=== PATIENT | male | born 1945 | race Caucasian/White ===

== ENCOUNTER 2017-11-13 08:06 | Inpatient (IN) | payer MEDICARE, OTHER ==
[2017-11-13] MEDS: METHYLPREDNISOLONE 125 MG INJ IV (08:39)
[2017-11-13 08:41] LABS: ADD MAN DIFF? NO
[2017-11-13 08:45] LABS: WHITE BLOOD COUNT 13.8 10^3/ul (4.8-10.8)
[2017-11-13 08:45] LABS: BASOPHILS % 0.3 % (0.0-2.0); EOSINOPHILS # 0.1 10^3/ul (0.0-0.5); EOSINOPHILS % 0.7 % (0.0-7.0); HEMATOCRIT 39.1 % (42.0-52.0); HEMOGLOBIN 12.3 g/dl (14.0-18.0); LYMPHOCYTES # 0.6 10^3/ul (0.8-2.9); LYMPHOCYTES % 4.6 % (15.0-51.0); MEAN CORPUSCULAR HEMOGLOBIN 30.8 pg (29.0-33.0); MEAN CORPUSCULAR HGB CONC 31.5 g/dl (32.0-37.0); MEAN CORPUSCULAR VOLUME 97.8 fl (82.0-101.0); MONOCYTE # 0.9 10^3/ul (0.3-0.9); MONOCYTES % 6.6 % (0.0-11.0); NEUTROPHIL # 12.1 10^3/ul (1.6-7.5); NEUTROPHILS % 87.4 % (39.0-77.0); PLATELET COUNT 244 10^3/UL (140-415); RED CELL DISTRIBUTION WIDTH 12.9 % (11.5-14.5)
[2017-11-13] MEDS: ALBUTEROL 0.5% (NEB) 2.5 MG/0.5 ML AMP INH (09:03)
[2017-11-13 09:07] LABS: ALANINE AMINOTRANSFERASE 31 IU/L (13-69); ALBUMIN 4.1 g/dl (3.3-4.9); ALBUMIN/GLOBULIN RATIO 1.64; ALKALINE PHOSPHATASE 77 IU/L (42-121); ANION GAP 16 (8-16); ASPARTATE AMINO TRANSFERASE 19 IU/L (15-46); BILIRUBIN,INDIRECT 0.2 mg/dl (0-1.1); BILIRUBIN,TOTAL 0.2 mg/dl (0.2-1.3); BLOOD UREA NITROGEN 64 mg/dl (7-20); CALCIUM 8.1 mg/dl (8.4-10.2); CARBON DIOXIDE 30 mmol/L (21-31); CHLORIDE 100 mmol/L (97-110); CREATININE 8.49 mg/dl (0.61-1.24); GLUCOSE 88 mg/dl (70-220); SODIUM 141 mmol/L (135-144); TOTAL PROTEIN 6.6 g/dl (6.1-8.1)
[2017-11-13 09:18] LABS: B-TYPE NATRIURETIC PEPTIDE 23300 PG/ML (0-125)
[2017-11-13 09:19] LABS: TROPONIN-I < 0.012 ng/ml (0.000-0.120)
[2017-11-13] MEDS ORDERED: ACETAMINOPHEN 325 MG TAB PO (10:30)
[2017-11-13] MEDS ORDERED: ONDANSETRON 4 MG INJ IV ×2 (10:30→13:30)
[2017-11-13] MEDS ORDERED: NACL 0.9% 3 ML SYG IV (13:30)
[2017-11-13] MEDS ORDERED: ZOLPIDEM 5 MG TAB PO (13:30)
[2017-11-13 13:55] LABS: CREATINE KINASE 301 IU/L (23-200)
[2017-11-13] MEDS ORDERED: GLUCOSE GEL 15 GRAM TUBE BUCCAL (14:00)
[2017-11-13] MEDS ORDERED: DEXTROSE 50% 50 ML SYRINGE IV ×2 (14:00)
[2017-11-13] MEDS ORDERED: GLUCAGON 1 MG INJ IM (14:00)
[2017-11-13] MEDS ORDERED: GLUCOSE GEL 15 GRAM TUBE PO ×2 (14:00)
[2017-11-13 14:07] LABS: CK INDEX 0.1
[2017-11-13 14:10] LABS: CK-MB < 0.22 ng/ml (0.0-2.4); TROPONIN-I < 0.012 ng/ml (0.000-0.120)
[2017-11-13] MEDS: FLUTICASONE/VILANTEROL 100-25 INH (16:01)
[2017-11-13] MEDS: ALBUTEROL/IPRATROPIUM (NEB) 3 ML AMP HHN ×2 (16:40→20:41)
[2017-11-13] MEDS: INSULIN ASPART [NOVOLOG] 3 ML PEN SC ×2 (17:07→20:24)
[2017-11-13] MEDS: SEVELAMER CARBONATE 0.8 GM PKT PO (17:07)
[2017-11-13] MEDS ORDERED: INSULIN ASPART [NOVOLOG] 3 ML PEN SC (17:35)
[2017-11-13 19:42] LABS: CREATINE KINASE 293 IU/L (23-200)
[2017-11-13 19:55] LABS: CK INDEX 0.1
[2017-11-13 19:58] LABS: CK-MB 0.25 ng/ml (0.0-2.4); TROPONIN-I < 0.012 ng/ml (0.000-0.120)
[2017-11-13] MEDS: HEPARIN 5,000 UNIT/0.5 ML VIAL SC (20:21)
[2017-11-13] MEDS: FAMOTIDINE 20 MG TAB PO (20:21)
[2017-11-13 23:19] LABS: HEPATITIS B SURFACE ANTIGEN NEGATIVE (NEGATIVE)
[2017-11-14] MEDS: ALBUTEROL/IPRATROPIUM (NEB) 3 ML AMP HHN ×6 (00:54→21:20)
[2017-11-14] MEDS: ACCU-CHEK XX (02:00)
[2017-11-14 06:12] LABS: ADD MAN DIFF? NO
[2017-11-14 06:18] LABS: WHITE BLOOD COUNT 13.4 10^3/ul (4.8-10.8)
[2017-11-14 06:18] LABS: ABNORMAL IP MESSAGE 1; HEMATOCRIT 31.4 % (42.0-52.0); HEMOGLOBIN 10.4 g/dl (14.0-18.0); LYMPHOCYTES # 0.3 10^3/ul (0.8-2.9); LYMPHOCYTES % 2.4 % (15.0-51.0); MEAN CORPUSCULAR HEMOGLOBIN 31.4 pg (29.0-33.0); MEAN CORPUSCULAR HGB CONC 33.1 g/dl (32.0-37.0); MEAN CORPUSCULAR VOLUME 94.9 fl (82.0-101.0); MEAN PLATELET VOLUME 11.4 fl (7.4-10.4); MONOCYTE # 0.5 10^3/ul (0.3-0.9); MONOCYTES % 3.6 % (0.0-11.0); NEUTROPHIL # 12.6 10^3/ul (1.6-7.5); NEUTROPHILS % 93.6 % (39.0-77.0); PLATELET COUNT 212 10^3/UL (140-415); POSITIVE DIFF @See below; RED BLOOD COUNT 3.31 10^6/ul (4.70-6.10); RED CELL DISTRIBUTION WIDTH 12.8 % (11.5-14.5)
[2017-11-14 06:30] LABS: HEMOGLOBIN A1C 5.3 % (0-5.9)
[2017-11-14 06:41] LABS: ALANINE AMINOTRANSFERASE 29 IU/L (13-69); ALBUMIN 3.7 g/dl (3.3-4.9); ALBUMIN/GLOBULIN RATIO 1.54; ALKALINE PHOSPHATASE 67 IU/L (42-121); ANION GAP 14 (8-16); ASPARTATE AMINO TRANSFERASE 16 IU/L (15-46); BILIRUBIN,INDIRECT 0.1 mg/dl (0-1.1); BILIRUBIN,TOTAL 0.1 mg/dl (0.2-1.3); BLOOD UREA NITROGEN 41 mg/dl (7-20); CALCIUM 8.1 mg/dl (8.4-10.2); CARBON DIOXIDE 30 mmol/L (21-31); CHLORIDE 101 mmol/L (97-110); CHOLESTEROL 142 mg/dl (100-200); CREATININE 5.12 mg/dl (0.61-1.24); GLUCOSE 144 mg/dl (70-220); HDL CHOLESTEROL 71 mg/dl (31-75); LDL CHOLESTEROL,CALCULATED 55 mg/dl; MAGNESIUM 2.3 mg/dl (1.7-2.5); POTASSIUM 4.2 mmol/L (3.5-5.1); SODIUM 141 mmol/L (135-144); TOTAL PROTEIN 6.1 g/dl (6.1-8.1); TRIGLYCERIDES 81 mg/dl (0-149)
[2017-11-14 07:07] LABS: THYROID STIMULATING HORMONE 0.213 MIU/L (0.465-4.680)
[2017-11-14] MEDS: INSULIN ASPART [NOVOLOG] 3 ML PEN SC ×4 (07:35→21:00)
[2017-11-14 07:41] LABS: AADO2 Arterial 48.6 mmHg (7.0-24.0); Allen Test ACCEPTAB; Arterial Base Excess -0.5 mmol/L (-3.0-3); Arterial Blood Gas Oxygen Sat 89.1 mmHG (95.0-100.0); Arterial COHb 0.6 % (0.0-3.0); Arterial Fraction of Oxyhgb 88.5 % (93.0-99.0); Arterial HCO3 23.6 mmol/L (22.0-26.0); Arterial MetHb 0.1 % (0.0-1.5); Arterial Total Hemglobin 12.4 g/dl (12.0-18.0); Arterial pCO2 36.8 mmhg (35-45); MODE ROOM AIR; Site Right Radial
[2017-11-14] MEDS: SEVELAMER CARBONATE 0.8 GM PKT PO ×2 (07:46→17:05)
[2017-11-14] MEDS: FLUTICASONE/VILANTEROL 100-25 INH (08:27)
[2017-11-14] MEDS: ASPIRIN 81 MG TAB PO (08:27)
[2017-11-14] MEDS: HYDROCORTISONE 5 MG TAB PO (08:28)
[2017-11-14] MEDS: AMIODARONE 200 MG TAB PO (08:28)
[2017-11-14] MEDS: LINAGLIPTIN 5 MG TABLET PO (08:28)
[2017-11-14] MEDS: METOPROLOL (XL) 50 MG TAB PO (08:28)
[2017-11-14] MEDS: HEPARIN 5,000 UNIT/0.5 ML VIAL SC ×2 (08:29→20:53)
[2017-11-14] MEDS: SERTRALINE 50 MG TAB PO (08:29)
[2017-11-14] MEDS: LISINOPRIL 5 MG TAB PO (12:04)
[2017-11-14] MEDS: NIFEdipine (XL) 30 MG TAB PO (12:37)
[2017-11-14] MEDS: FAMOTIDINE 20 MG TAB PO (20:30)
[2017-11-15] MEDS: ALBUTEROL/IPRATROPIUM (NEB) 3 ML AMP HHN ×6 (00:34→20:48)
[2017-11-15] MEDS: ACCU-CHEK XX (02:30)
[2017-11-15 05:18] LABS: ADD MAN DIFF? NO
[2017-11-15 05:21] LABS: WHITE BLOOD COUNT 11.2 10^3/ul (4.8-10.8)
[2017-11-15 05:21] LABS: BASOPHILS % 0.4 % (0.0-2.0); EOSINOPHILS # 0.1 10^3/ul (0.0-0.5); EOSINOPHILS % 0.9 % (0.0-7.0); HEMATOCRIT 34.6 % (42.0-52.0); HEMOGLOBIN 11.2 g/dl (14.0-18.0); LYMPHOCYTES # 1.3 10^3/ul (0.8-2.9); LYMPHOCYTES % 11.8 % (15.0-51.0); MEAN CORPUSCULAR HEMOGLOBIN 30.5 pg (29.0-33.0); MEAN CORPUSCULAR HGB CONC 32.4 g/dl (32.0-37.0); MEAN CORPUSCULAR VOLUME 94.3 fl (82.0-101.0); MEAN PLATELET VOLUME 11.4 fl (7.4-10.4); MONOCYTE # 0.8 10^3/ul (0.3-0.9); MONOCYTES % 7.5 % (0.0-11.0); NEUTROPHIL # 8.9 10^3/ul (1.6-7.5); PLATELET COUNT 261 10^3/UL (140-415); RED BLOOD COUNT 3.67 10^6/ul (4.70-6.10)
[2017-11-15 05:33] LABS: ANION GAP 15 (8-16); BLOOD UREA NITROGEN 36 mg/dl (7-20); CALCIUM 8.4 mg/dl (8.4-10.2); CARBON DIOXIDE 29 mmol/L (21-31); CHLORIDE 102 mmol/L (97-110); CREATININE 4.54 mg/dl (0.61-1.24); GLUCOSE 88 mg/dl (70-220); MAGNESIUM 2.3 mg/dl (1.7-2.5); PHOSPHORUS 4.1 mg/dl (2.5-4.9); POTASSIUM 4.3 mmol/L (3.5-5.1); SODIUM 142 mmol/L (135-144)
[2017-11-15] MEDS: INSULIN ASPART [NOVOLOG] 3 ML PEN SC ×4 (07:35→20:24)
[2017-11-15] MEDS: SEVELAMER CARBONATE 0.8 GM PKT PO ×2 (07:40→17:02)
[2017-11-15] MEDS: HYDROCORTISONE 5 MG TAB PO (08:41)
[2017-11-15] MEDS: SERTRALINE 50 MG TAB PO (08:41)
[2017-11-15] MEDS: LISINOPRIL 5 MG TAB PO (08:42)
[2017-11-15] MEDS: ASPIRIN 81 MG TAB PO (08:42)
[2017-11-15] MEDS: METOPROLOL (XL) 50 MG TAB PO (08:42)
[2017-11-15] MEDS: AMIODARONE 200 MG TAB PO (08:42)
[2017-11-15] MEDS: HEPARIN 5,000 UNIT/0.5 ML VIAL SC ×2 (08:47→20:24)
[2017-11-15] MEDS: LINAGLIPTIN 5 MG TABLET PO (09:58)
[2017-11-15] MEDS: FLUTICASONE/VILANTEROL 100-25 INH (09:59)
[2017-11-15] MEDS: FAMOTIDINE 20 MG TAB PO (20:22)
[2017-11-16] MEDS: hydrALAzine 20 MG INJ IV (01:03)
[2017-11-16] MEDS: ALBUTEROL/IPRATROPIUM (NEB) 3 ML AMP HHN ×6 (01:10→21:40)
[2017-11-16] MEDS: ACCU-CHEK XX (02:00)
[2017-11-16] MEDS: INSULIN ASPART [NOVOLOG] 3 ML PEN SC ×4 (08:00→20:38)
[2017-11-16] MEDS: SEVELAMER CARBONATE 0.8 GM PKT PO ×2 (08:00→17:49)
[2017-11-16] MEDS: FLUTICASONE/VILANTEROL 100-25 INH (08:37)
[2017-11-16] MEDS: ACETAMINOPHEN 325 MG TAB PO (08:37)
[2017-11-16] MEDS: SERTRALINE 50 MG TAB PO (09:00)
[2017-11-16] MEDS: HEPARIN 5,000 UNIT/0.5 ML VIAL SC ×2 (12:11→21:00)
[2017-11-16] MEDS: LINAGLIPTIN 5 MG TABLET PO (14:17)
[2017-11-16] MEDS: ASPIRIN 81 MG TAB PO (14:17)
[2017-11-16] MEDS: METOPROLOL (XL) 50 MG TAB PO (14:18)
[2017-11-16] MEDS: HYDROCORTISONE 5 MG TAB PO (14:18)
[2017-11-16] MEDS: AMIODARONE 200 MG TAB PO (14:19)
[2017-11-16] MEDS: LISINOPRIL 20 MG TAB PO ×2 (14:20→20:38)
[2017-11-16] MEDS: FAMOTIDINE 20 MG TAB PO (20:38)
[2017-11-16] MEDS: LORAZEPAM 1 MG TAB PO (20:38)
[2017-11-17] MEDS: ALBUTEROL/IPRATROPIUM (NEB) 3 ML AMP HHN ×4 (01:58→12:54)
[2017-11-17] MEDS: ACCU-CHEK XX (02:00)
[2017-11-17] MEDS ORDERED: FENTAnyl 50 MCG/ML VIAL (07:43)
[2017-11-17] MEDS ORDERED: MIDAZOLAM 1 MG/ML 2 ML INJ (07:43)
[2017-11-17] MEDS ORDERED: IODIXANOL LOCM 100 ML BTL ×2 (07:47→08:44)
[2017-11-17] MEDS ORDERED: LIDOCAINE 1% (MDV) 20 ML INJ (07:47)
[2017-11-17] MEDS ORDERED: HEPARIN 1000 UNITS/NS (A-LINE) 1,000 ML (07:47)
[2017-11-17] MEDS ORDERED: HEPARIN 1000 UNITS/ML 10 ML INJ (07:57)
[2017-11-17] MEDS: INSULIN ASPART [NOVOLOG] 3 ML PEN SC ×2 (09:30→12:00)
[2017-11-17] MEDS: HYDROCORTISONE 5 MG TAB PO (09:37)
[2017-11-17] MEDS: AMIODARONE 200 MG TAB PO (09:38)
[2017-11-17] MEDS: SEVELAMER CARBONATE 0.8 GM PKT PO (09:39)
[2017-11-17] MEDS: FLUTICASONE/VILANTEROL 100-25 INH (09:40)
[2017-11-17] MEDS: ASPIRIN 81 MG TAB PO (09:40)
[2017-11-17] MEDS: LINAGLIPTIN 5 MG TABLET PO (09:41)
[2017-11-17] MEDS: SERTRALINE 50 MG TAB PO (09:41)
[2017-11-17] MEDS: METOPROLOL (XL) 50 MG TAB PO (09:41)
[2017-11-17] MEDS: LISINOPRIL 20 MG TAB PO (09:41)
[2017-11-17] MEDS: HEPARIN 5,000 UNIT/0.5 ML VIAL SC (09:43)
[2017-11-17 11:11] LABS: ADD MAN DIFF? NO
[2017-11-17 11:13] LABS: BASOPHIL # 0.1 10^3/ul (0.0-0.1); BASOPHILS % 0.7 % (0.0-2.0); EOSINOPHILS # 0.2 10^3/ul (0.0-0.5); HEMATOCRIT 40.2 % (42.0-52.0); HEMOGLOBIN 12.9 g/dl (14.0-18.0); MEAN CORPUSCULAR HEMOGLOBIN 30.5 pg (29.0-33.0); MEAN CORPUSCULAR HGB CONC 32.1 g/dl (32.0-37.0); MEAN PLATELET VOLUME 10.7 fl (7.4-10.4); MONOCYTE # 0.6 10^3/ul (0.3-0.9); MONOCYTES % 7.1 % (0.0-11.0); NEUTROPHILS % 78.5 % (39.0-77.0); PLATELET COUNT 293 10^3/UL (140-415); RED BLOOD COUNT 4.23 10^6/ul (4.70-6.10); RED CELL DISTRIBUTION WIDTH 13.2 % (11.5-14.5)
[2017-11-17 11:13] LABS: WHITE BLOOD COUNT 8.9 10^3/ul (4.8-10.8)
[2017-11-17 11:33] LABS: ANION GAP 23 (8-16); BLOOD UREA NITROGEN 57 mg/dl (7-20); CALCIUM 8.4 mg/dl (8.4-10.2); CARBON DIOXIDE 23 mmol/L (21-31); CHLORIDE 98 mmol/L (97-110); CREATININE 6.46 mg/dl (0.61-1.24); GLUCOSE 113 mg/dl (70-220); MAGNESIUM 2.3 mg/dl (1.7-2.5); PHOSPHORUS 5.3 mg/dl (2.5-4.9); POTASSIUM 4.5 mmol/L (3.5-5.1); SODIUM 139 mmol/L (135-144)
== END 2017-11-17 16:30 | disposition home health service (06) | DRG 673 ==
LOC: MS3 11-15 11:40 → E/R 08:06 → MS3 11-15 12:01 → MS4 11-15 19:06 → MS3 10:12
PROC: 057F3ZZ Dilation of Left Cephalic Vein, Percutaneous Approach (ICD-10-PCS; principal; 2017-11-17 07:14)
PROC: 05LY3ZZ Occlusion of Upper Vein, Percutaneous Approach (ICD-10-PCS; 2017-11-17 07:14)
PROC: B50W1ZZ Plain Radiography of Dialysis Shunt/Fistula using Low Osmolar Contrast (ICD-10-PCS; 2017-11-17 07:14)
DX: I13.11 Hypertensive heart and chronic kidney disease without heart failure, with stage 5 chronic kidney disease, or end stage renal disease (principal); I50.43 Acute on chronic combined systolic (congestive) and diastolic (congestive) heart failure; N18.6 End stage renal disease; J96.00 Acute respiratory failure, unspecified whether with hypoxia or hypercapnia; T82.858A Stenosis of other vascular prosthetic devices, implants and grafts, initial encounter; J44.1 Chronic obstructive pulmonary disease with (acute) exacerbation; E87.79 Other fluid overload; D63.8 Anemia in other chronic diseases classified elsewhere; E11.9 Type 2 diabetes mellitus without complications; Z87.891 Personal history of nicotine dependence; I35.0 Nonrheumatic aortic (valve) stenosis; F32.9 Major depressive disorder, single episode, unspecified; Z99.81 Dependence on supplemental oxygen
CPT/HCPCS: 36415; 36600; 36902; 36909; 71045; 74176; 76937; 80048; 80053; 80061; 82550; 82553; 82803; 82962; 83036; 83735; 83880; 84100; 84443; 84484; 85025; 87081; 87340; 90935; 93005; 93306; 93931; 93970; 94640; 94644; 94664; 96374; 99285-25

== ENCOUNTER 2017-11-19 20:47 | Inpatient (IN) | payer MEDICARE, OTHER ==
[2017-11-19] MEDS: ALBUTEROL 0.083% (NEB) 2.5 MG/3 ML AMP HHN (21:33)
[2017-11-19] MEDS: IPRATROPIUM (NEB) 0.5 MG/2.5 ML AMP HHN (21:33)
[2017-11-19 21:36] LABS: ADD MAN DIFF? NO
[2017-11-19 21:40] LABS: WHITE BLOOD COUNT 18.5 10^3/ul (4.8-10.8)
[2017-11-19 21:40] LABS: ABNORMAL IP MESSAGE 1; BASOPHILS % 0.2 % (0.0-2.0); EOSINOPHILS # 0.1 10^3/ul (0.0-0.5); EOSINOPHILS % 0.7 % (0.0-7.0); HEMATOCRIT 35.4 % (42.0-52.0); HEMOGLOBIN 11.5 g/dl (14.0-18.0); LYMPHOCYTES # 0.5 10^3/ul (0.8-2.9); LYMPHOCYTES % 2.9 % (15.0-51.0); MEAN CORPUSCULAR HEMOGLOBIN 31.4 pg (29.0-33.0); MEAN CORPUSCULAR HGB CONC 32.5 g/dl (32.0-37.0); MEAN CORPUSCULAR VOLUME 96.7 fl (82.0-101.0); MEAN PLATELET VOLUME 11.4 fl (7.4-10.4); MONOCYTE # 1.2 10^3/ul (0.3-0.9); MONOCYTES % 6.4 % (0.0-11.0); NEUTROPHIL # 16.5 10^3/ul (1.6-7.5); NEUTROPHILS % 89.3 % (39.0-77.0); PLATELET COUNT 220 10^3/UL (140-415); POSITIVE DIFF @See below; RED BLOOD COUNT 3.66 10^6/ul (4.70-6.10); RED CELL DISTRIBUTION WIDTH 13.3 % (11.5-14.5)
[2017-11-19 21:57] LABS: ANION GAP 19 (8-16); BLOOD UREA NITROGEN 60 mg/dl (7-20); CALCIUM 7.9 mg/dl (8.4-10.2); CARBON DIOXIDE 23 mmol/L (21-31); CHLORIDE 95 mmol/L (97-110); CREATININE 7.32 mg/dl (0.61-1.24); GLUCOSE 92 mg/dl (70-220); SODIUM 131 mmol/L (135-144)
[2017-11-19 22:04] LABS: POTASSIUM 5.8 mmol/L (3.5-5.1)
[2017-11-19 22:11] LABS: TROPONIN-I < 0.010 ng/ml (0.000-0.120)
[2017-11-19] MEDS: LEVOFLOXACIN 500MG/D5W (PMX) 100 ML IVPB (23:59)
[2017-11-20] MEDS: LEVOFLOXACIN 500MG/D5W (PMX) 100 ML IVPB (00:16)
[2017-11-20] MEDS ORDERED: ZOLPIDEM 5 MG TAB PO (02:00)
[2017-11-20] MEDS: LORAZEPAM 1 MG TAB PO ×2 (02:05→16:51)
[2017-11-20 05:08] LABS: ADD MAN DIFF? NO
[2017-11-20 05:13] LABS: WHITE BLOOD COUNT 17.5 10^3/ul (4.8-10.8)
[2017-11-20 05:13] LABS: ABNORMAL IP MESSAGE 1; BASOPHILS % 0.2 % (0.0-2.0); EOSINOPHILS % 0.2 % (0.0-7.0); HEMATOCRIT 32.8 % (42.0-52.0); HEMOGLOBIN 10.5 g/dl (14.0-18.0); LYMPHOCYTES # 0.4 10^3/ul (0.8-2.9); LYMPHOCYTES % 2.5 % (15.0-51.0); MEAN CORPUSCULAR HEMOGLOBIN 30.4 pg (29.0-33.0); MEAN CORPUSCULAR VOLUME 95.1 fl (82.0-101.0); MEAN PLATELET VOLUME 10.8 fl (7.4-10.4); MONOCYTE # 0.9 10^3/ul (0.3-0.9); NEUTROPHIL # 16.1 10^3/ul (1.6-7.5); NEUTROPHILS % 91.5 % (39.0-77.0); PLATELET COUNT 228 10^3/UL (140-415); POSITIVE DIFF @See below; RED BLOOD COUNT 3.45 10^6/ul (4.70-6.10); RED CELL DISTRIBUTION WIDTH 13.4 % (11.5-14.5)
[2017-11-20 05:40] LABS: ALANINE AMINOTRANSFERASE 34 IU/L (13-69); ALBUMIN 3.5 g/dl (3.3-4.9); ALKALINE PHOSPHATASE 72 IU/L (42-121); ANION GAP 12 (8-16); ASPARTATE AMINO TRANSFERASE 15 IU/L (15-46); BILIRUBIN,INDIRECT 0.1 mg/dl (0-1.1); BILIRUBIN,TOTAL 0.1 mg/dl (0.2-1.3); BLOOD UREA NITROGEN 65 mg/dl (7-20); CALCIUM 7.7 mg/dl (8.4-10.2); CARBON DIOXIDE 28 mmol/L (21-31); CHLORIDE 96 mmol/L (97-110); GLUCOSE 90 mg/dl (70-220); MAGNESIUM 2.2 mg/dl (1.7-2.5); PHOSPHORUS 3.8 mg/dl (2.5-4.9); POTASSIUM 4.7 mmol/L (3.5-5.1); SODIUM 131 mmol/L (135-144)
[2017-11-20] MEDS ORDERED: GLUCOSE GEL 15 GRAM TUBE BUCCAL (08:30)
[2017-11-20] MEDS ORDERED: GLUCOSE GEL 15 GRAM TUBE PO ×2 (08:30)
[2017-11-20] MEDS ORDERED: DEXTROSE 50% 50 ML SYRINGE IV ×2 (08:30)
[2017-11-20] MEDS ORDERED: GLUCAGON 1 MG INJ IM (08:30)
[2017-11-20] MEDS: ARFORMOTEROL TARTRATE 15MCG/2 ML AMP INH ×2 (09:00→19:35)
[2017-11-20] MEDS: METOPROLOL (XL) 50 MG TAB PO (09:19)
[2017-11-20] MEDS: ACETAMINOPHEN 325 MG TAB PO ×2 (09:19→19:04)
[2017-11-20] MEDS: SERTRALINE 50 MG TAB PO (09:20)
[2017-11-20] MEDS: LINAGLIPTIN 5 MG TABLET PO (09:20)
[2017-11-20] MEDS: AMIODARONE 200 MG TAB PO (09:20)
[2017-11-20] MEDS: BUDESONIDE (NEB) 0.5MG/2ML AMP INH ×2 (09:22→19:27)
[2017-11-20] MEDS: SEVELAMER CARBONATE 0.8 GM PKT PO ×2 (09:50→17:35)
[2017-11-20] MEDS: HYDROCORTISONE 5 MG TAB PO (09:50)
[2017-11-20] MEDS ORDERED: VANCOMYCIN IV PER PHARMACY XX (14:00)
[2017-11-20] MEDS ORDERED: VANCOMYCIN 1 GM 250 ML IVPB (14:30)
[2017-11-20] MEDS: ERTAPENEM SODIUM 1 GM in SOD CHLORIDE 0.9% 100 ML IVPB (14:45)
[2017-11-20] MEDS: ONDANSETRON 4 MG INJ IV (15:35)
[2017-11-20] MEDS: ALBUTEROL/IPRATROPIUM (NEB) 3 ML AMP HHN (15:38)
[2017-11-20] MEDS: VANCOMYCIN 1.5 GM in SOD CHLORIDE 0.9% 250 ML IVPB (15:48)
[2017-11-20] MEDS ORDERED: GENTAMICIN IV PER PHARMACY XX (16:30)
[2017-11-20] MEDS ORDERED: METOCLOPRAMIDE 10 MG INJ IV (16:30)
[2017-11-20] MEDS ORDERED: GENTAMICIN 80 MG/NS (PMX) 50 ML IVPB (17:30)
[2017-11-20] MEDS: GENTAMICIN 120 MG/NS (PMX) 100 ML IVPB (18:57)
[2017-11-20] MEDS: ACYCLOVIR 400 MG TAB PO (21:18)
[2017-11-20] MEDS: METOCLOPRAMIDE 10 MG INJ IV (21:18)
[2017-11-21] MEDS: hydrALAzine 20 MG INJ IV ×2 (03:30→18:35)
[2017-11-21] MEDS: ONDANSETRON 4 MG INJ IV (04:10)
[2017-11-21] MEDS: LORAZEPAM 1 MG TAB PO ×2 (04:10→17:50)
[2017-11-21] MEDS: LABETALOL HCL 20MG INJ IV (04:31)
[2017-11-21 04:32] LABS: ADD MAN DIFF? NO
[2017-11-21 04:40] LABS: WHITE BLOOD COUNT 12.6 10^3/ul (4.8-10.8)
[2017-11-21 04:40] LABS: ABNORMAL IP MESSAGE 1; BASOPHIL # 0.1 10^3/ul (0.0-0.1); BASOPHILS % 0.4 % (0.0-2.0); EOSINOPHILS % 0.2 % (0.0-7.0); HEMATOCRIT 37.7 % (42.0-52.0); LYMPHOCYTES # 0.3 10^3/ul (0.8-2.9); LYMPHOCYTES % 2.6 % (15.0-51.0); MEAN CORPUSCULAR HEMOGLOBIN 30.2 pg (29.0-33.0); MEAN CORPUSCULAR HGB CONC 31.8 g/dl (32.0-37.0); MONOCYTE # 0.5 10^3/ul (0.3-0.9); NEUTROPHIL # 11.6 10^3/ul (1.6-7.5); PLATELET COUNT 231 10^3/UL (140-415); POSITIVE DIFF @See below; RED BLOOD COUNT 3.97 10^6/ul (4.70-6.10); RED CELL DISTRIBUTION WIDTH 13.2 % (11.5-14.5)
[2017-11-21] MEDS: ALBUTEROL/IPRATROPIUM (NEB) 3 ML AMP HHN (04:54)
[2017-11-21 04:55] LABS: ANION GAP 14 (8-16); BLOOD UREA NITROGEN 28 mg/dl (7-20); CALCIUM 8.9 mg/dl (8.4-10.2); CARBON DIOXIDE 34 mmol/L (21-31); CHLORIDE 95 mmol/L (97-110); CREATININE 4.48 mg/dl (0.61-1.24); GLUCOSE 84 mg/dl (70-220); MAGNESIUM 2.1 mg/dl (1.7-2.5); PHOSPHORUS 4.3 mg/dl (2.5-4.9); POTASSIUM 4.8 mmol/L (3.5-5.1); SODIUM 138 mmol/L (135-144)
[2017-11-21] MEDS: ARFORMOTEROL TARTRATE 15MCG/2 ML AMP INH ×2 (07:45→19:42)
[2017-11-21] MEDS: BUDESONIDE (NEB) 0.5MG/2ML AMP INH ×2 (07:46→19:42)
[2017-11-21] MEDS: SEVELAMER CARBONATE 0.8 GM PKT PO ×2 (08:25→16:53)
[2017-11-21] MEDS: METOCLOPRAMIDE 10 MG INJ IV ×2 (08:25→20:15)
[2017-11-21] MEDS: AMIODARONE 200 MG TAB PO (08:25)
[2017-11-21] MEDS: HYDROCORTISONE 5 MG TAB PO (08:25)
[2017-11-21] MEDS: LINAGLIPTIN 5 MG TABLET PO (08:26)
[2017-11-21] MEDS: METOPROLOL (XL) 50 MG TAB PO (08:26)
[2017-11-21] MEDS: SERTRALINE 50 MG TAB PO (08:26)
[2017-11-21] MEDS: ACYCLOVIR 400 MG TAB PO ×2 (08:29→20:15)
[2017-11-21] MEDS: ACETAMINOPHEN 325 MG TAB PO ×2 (12:46→20:15)
[2017-11-21] MEDS: GENTAMICIN 80 MG/NS (PMX) 50 ML IVPB (18:35)
[2017-11-22] MEDS: ALBUTEROL/IPRATROPIUM (NEB) 3 ML AMP HHN (06:08)
[2017-11-22] MEDS: LORAZEPAM 1 MG TAB PO ×2 (06:51→21:23)
[2017-11-22 08:06] LABS: AADO2 Arterial 450.7 mmHg (7.0-24.0); Allen Test ACCEPTAB; Arterial Base Excess 3.6 mmol/L (-3.0-3); Arterial Blood Gas Oxygen Sat 99.1 mmHG (95.0-100.0); Arterial COHb 0.1 % (0.0-3.0); Arterial Fraction of Oxyhgb 98.7 % (93.0-99.0); Arterial HCO3 28.7 mmol/L (22.0-26.0); Arterial MetHb 0.3 % (0.0-1.5); Arterial Total Hemglobin 11.7 g/dl (12.0-18.0); Arterial pCO2 45.6 mmhg (35-45); MODE MASK - NRB; Site Right Radial
[2017-11-22] MEDS: ARFORMOTEROL TARTRATE 15MCG/2 ML AMP INH ×2 (08:21→19:27)
[2017-11-22] MEDS: BUDESONIDE (NEB) 0.5MG/2ML AMP INH ×2 (08:21→19:27)
[2017-11-22 08:49] LABS: ADD MAN DIFF? NO
[2017-11-22 08:57] LABS: ABNORMAL IP MESSAGE 1; BASOPHILS % 0.4 % (0.0-2.0); EOSINOPHILS % 0.3 % (0.0-7.0); HEMATOCRIT 33.1 % (42.0-52.0); HEMOGLOBIN 10.4 g/dl (14.0-18.0); LYMPHOCYTES # 0.3 10^3/ul (0.8-2.9); LYMPHOCYTES % 3.4 % (15.0-51.0); MEAN CORPUSCULAR HEMOGLOBIN 30.5 pg (29.0-33.0); MEAN CORPUSCULAR HGB CONC 31.4 g/dl (32.0-37.0); MEAN CORPUSCULAR VOLUME 97.1 fl (82.0-101.0); MONOCYTE # 0.6 10^3/ul (0.3-0.9); MONOCYTES % 7.1 % (0.0-11.0); NEUTROPHIL # 6.9 10^3/ul (1.6-7.5); NEUTROPHILS % 87.9 % (39.0-77.0); PLATELET COUNT 199 10^3/UL (140-415); POSITIVE DIFF @See below; RED BLOOD COUNT 3.41 10^6/ul (4.70-6.10); RED CELL DISTRIBUTION WIDTH 13.5 % (11.5-14.5)
[2017-11-22 08:57] LABS: WHITE BLOOD COUNT 7.9 10^3/ul (4.8-10.8)
[2017-11-22] MEDS: METOPROLOL (XL) 50 MG TAB PO (09:00)
[2017-11-22] MEDS: AMIODARONE 200 MG TAB PO (09:00)
[2017-11-22] MEDS: METOCLOPRAMIDE 10 MG INJ IV ×2 (09:00→21:20)
[2017-11-22] MEDS: ACYCLOVIR 400 MG TAB PO ×2 (09:08→21:20)
[2017-11-22] MEDS: SERTRALINE 50 MG TAB PO (09:09)
[2017-11-22] MEDS: HYDROCORTISONE 5 MG TAB PO ×3 (09:09→21:20)
[2017-11-22] MEDS: PANTOPRAZOLE (EC) 40 MG TAB PO (09:09)
[2017-11-22] MEDS: LINAGLIPTIN 5 MG TABLET PO (09:09)
[2017-11-22] MEDS: SEVELAMER CARBONATE 0.8 GM PKT PO ×2 (09:11→18:26)
[2017-11-22 09:17] LABS: HEMOGLOBIN A1C 5.4 % (0-5.9)
[2017-11-22 09:18] LABS: ANION GAP 14 (8-16); BLOOD UREA NITROGEN 29 mg/dl (7-20); CALCIUM 8.3 mg/dl (8.4-10.2); CARBON DIOXIDE 32 mmol/L (21-31); CHLORIDE 93 mmol/L (97-110); CREATININE 4.63 mg/dl (0.61-1.24); GLUCOSE 91 mg/dl (70-220); MAGNESIUM 2.2 mg/dl (1.7-2.5); PHOSPHORUS 4.4 mg/dl (2.5-4.9); POTASSIUM 4.2 mmol/L (3.5-5.1); SODIUM 135 mmol/L (135-144)
[2017-11-22 09:24] LABS: VANCOMYCIN,RANDOM 8.1 ug/ml
[2017-11-22] MEDS: HEPARIN 5,000 UNIT/0.5 ML VIAL SC ×2 (09:25→21:22)
[2017-11-22] MEDS: VANCOMYCIN 1 GM 250 ML IVPB (11:48)
[2017-11-22] MEDS: LISINOPRIL 5 MG TAB PO (13:00)
[2017-11-22] MEDS: GENTAMICIN 80 MG/NS (PMX) 50 ML IVPB (18:28)
[2017-11-22] MEDS: GUAIFENESIN 20 MG/ML 5ML CUP PO (21:24)
[2017-11-23] MEDS: PANTOPRAZOLE (EC) 40 MG TAB PO (05:21)
[2017-11-23] MEDS: LORAZEPAM 1 MG TAB PO ×2 (05:25→21:42)
[2017-11-23 07:51] LABS: ADD MAN DIFF? NO
[2017-11-23 07:58] LABS: BASOPHILS % 0.2 % (0.0-2.0); EOSINOPHILS % 0.7 % (0.0-7.0); HEMATOCRIT 33.5 % (42.0-52.0); HEMOGLOBIN 10.5 g/dl (14.0-18.0); LYMPHOCYTES # 0.8 10^3/ul (0.8-2.9); LYMPHOCYTES % 14.4 % (15.0-51.0); MEAN CORPUSCULAR HEMOGLOBIN 30.2 pg (29.0-33.0); MEAN CORPUSCULAR HGB CONC 31.3 g/dl (32.0-37.0); MEAN CORPUSCULAR VOLUME 96.3 fl (82.0-101.0); MONOCYTE # 0.5 10^3/ul (0.3-0.9); MONOCYTES % 9.3 % (0.0-11.0); NEUTROPHIL # 4.3 10^3/ul (1.6-7.5); NEUTROPHILS % 74.4 % (39.0-77.0); PLATELET COUNT 206 10^3/UL (140-415); RED BLOOD COUNT 3.48 10^6/ul (4.70-6.10); RED CELL DISTRIBUTION WIDTH 13.2 % (11.5-14.5)
[2017-11-23 07:58] LABS: WHITE BLOOD COUNT 5.8 10^3/ul (4.8-10.8)
[2017-11-23 08:19] LABS: ANION GAP 14 (8-16); BLOOD UREA NITROGEN 24 mg/dl (7-20); CALCIUM 8.3 mg/dl (8.4-10.2); CARBON DIOXIDE 31 mmol/L (21-31); CHLORIDE 94 mmol/L (97-110); CREATININE 4.11 mg/dl (0.61-1.24); GLUCOSE 105 mg/dl (70-220); MAGNESIUM 2.3 mg/dl (1.7-2.5); PHOSPHORUS 3.9 mg/dl (2.5-4.9); SODIUM 135 mmol/L (135-144)
[2017-11-23] MEDS: BUDESONIDE (NEB) 0.5MG/2ML AMP INH ×2 (08:37→19:19)
[2017-11-23] MEDS: ARFORMOTEROL TARTRATE 15MCG/2 ML AMP INH ×2 (08:37→20:56)
[2017-11-23] MEDS: METOCLOPRAMIDE 10 MG INJ IV ×2 (09:38→21:44)
[2017-11-23] MEDS: SERTRALINE 50 MG TAB PO (09:40)
[2017-11-23] MEDS: ACYCLOVIR 400 MG TAB PO ×2 (09:40→21:43)
[2017-11-23] MEDS: LINAGLIPTIN 5 MG TABLET PO (09:41)
[2017-11-23] MEDS: HYDROCORTISONE 5 MG TAB PO ×3 (09:41→21:43)
[2017-11-23] MEDS: HEPARIN 5,000 UNIT/0.5 ML VIAL SC ×2 (09:42→21:48)
[2017-11-23] MEDS: SEVELAMER CARBONATE 0.8 GM PKT PO ×2 (12:54→18:12)
[2017-11-23] MEDS: LISINOPRIL 5 MG TAB PO (12:55)
[2017-11-23] MEDS: METOPROLOL (XL) 50 MG TAB PO (12:57)
[2017-11-23] MEDS: AMIODARONE 200 MG TAB PO (12:58)
[2017-11-23] MEDS: GUAIFENESIN 20 MG/ML 5ML CUP PO ×2 (13:03→21:43)
[2017-11-23] MEDS: ASPIRIN 81 MG TAB PO (15:14)
[2017-11-23] MEDS: GENTAMICIN 80 MG/NS (PMX) 50 ML IVPB (16:43)
[2017-11-24] MEDS: PANTOPRAZOLE (EC) 40 MG TAB PO (05:32)
[2017-11-24 06:06] LABS: ADD MAN DIFF? NO
[2017-11-24 06:11] LABS: WHITE BLOOD COUNT 6.3 10^3/ul (4.8-10.8)
[2017-11-24 06:11] LABS: BASOPHILS % 0.3 % (0.0-2.0); EOSINOPHILS # 0.1 10^3/ul (0.0-0.5); EOSINOPHILS % 0.9 % (0.0-7.0); HEMATOCRIT 33.2 % (42.0-52.0); HEMOGLOBIN 10.5 g/dl (14.0-18.0); LYMPHOCYTES # 0.8 10^3/ul (0.8-2.9); LYMPHOCYTES % 13.3 % (15.0-51.0); MEAN CORPUSCULAR HEMOGLOBIN 30.1 pg (29.0-33.0); MEAN CORPUSCULAR HGB CONC 31.6 g/dl (32.0-37.0); MEAN CORPUSCULAR VOLUME 95.1 fl (82.0-101.0); MEAN PLATELET VOLUME 10.8 fl (7.4-10.4); MONOCYTE # 0.5 10^3/ul (0.3-0.9); MONOCYTES % 8.2 % (0.0-11.0); NEUTROPHIL # 4.8 10^3/ul (1.6-7.5); NEUTROPHILS % 76.2 % (39.0-77.0); PLATELET COUNT 214 10^3/UL (140-415); RED BLOOD COUNT 3.49 10^6/ul (4.70-6.10); RED CELL DISTRIBUTION WIDTH 13.1 % (11.5-14.5)
[2017-11-24 06:28] LABS: ANION GAP 14 (8-16); BLOOD UREA NITROGEN 30 mg/dl (7-20); CALCIUM 8.1 mg/dl (8.4-10.2); CARBON DIOXIDE 28 mmol/L (21-31); CHLORIDE 97 mmol/L (97-110); CREATININE 4.38 mg/dl (0.61-1.24); GLUCOSE 152 mg/dl (70-220); MAGNESIUM 2.2 mg/dl (1.7-2.5); PHOSPHORUS 3.1 mg/dl (2.5-4.9); POTASSIUM 3.9 mmol/L (3.5-5.1); SODIUM 135 mmol/L (135-144)
[2017-11-24] MEDS: BUDESONIDE (NEB) 0.5MG/2ML AMP INH ×2 (07:42→19:21)
[2017-11-24] MEDS: ARFORMOTEROL TARTRATE 15MCG/2 ML AMP INH ×2 (07:46→19:20)
[2017-11-24] MEDS: HYDROCORTISONE 5 MG TAB PO ×3 (08:30→21:35)
[2017-11-24] MEDS: SEVELAMER CARBONATE 0.8 GM PKT PO ×2 (08:30→18:04)
[2017-11-24] MEDS: ACYCLOVIR 400 MG TAB PO ×2 (08:31→21:34)
[2017-11-24] MEDS: SERTRALINE 50 MG TAB PO (08:31)
[2017-11-24] MEDS: AMIODARONE 200 MG TAB PO (08:31)
[2017-11-24] MEDS: METOCLOPRAMIDE 10 MG INJ IV ×2 (08:31→21:33)
[2017-11-24] MEDS: METOPROLOL (XL) 50 MG TAB PO (08:32)
[2017-11-24] MEDS: LINAGLIPTIN 5 MG TABLET PO (08:32)
[2017-11-24] MEDS: ASPIRIN 81 MG TAB PO (08:32)
[2017-11-24] MEDS: LISINOPRIL 5 MG TAB PO (08:32)
[2017-11-24] MEDS: HEPARIN 5,000 UNIT/0.5 ML VIAL SC ×2 (08:47→21:42)
[2017-11-24] MEDS: GUAIFENESIN 20 MG/ML 5ML CUP PO ×2 (18:03→21:33)
[2017-11-24] MEDS: LORAZEPAM 1 MG TAB PO (21:34)
[2017-11-25] MEDS: GUAIFENESIN 20 MG/ML 5ML CUP PO ×4 (02:13→20:50)
[2017-11-25] MEDS: ALBUTEROL/IPRATROPIUM (NEB) 3 ML AMP HHN ×2 (03:56→08:17)
[2017-11-25] MEDS: PANTOPRAZOLE (EC) 40 MG TAB PO (05:15)
[2017-11-25 07:24] LABS: VANCOMYCIN,RANDOM 8.7 ug/ml
[2017-11-25] MEDS: AMIODARONE 200 MG TAB PO (08:04)
[2017-11-25] MEDS: METOPROLOL (XL) 50 MG TAB PO (08:04)
[2017-11-25] MEDS: ARFORMOTEROL TARTRATE 15MCG/2 ML AMP INH ×2 (08:15→20:17)
[2017-11-25] MEDS: BUDESONIDE (NEB) 0.5MG/2ML AMP INH ×2 (08:15→20:17)
[2017-11-25] MEDS: LISINOPRIL 5 MG TAB PO (09:00)
[2017-11-25] MEDS: HYDROCORTISONE 5 MG TAB PO ×3 (09:39→20:50)
[2017-11-25] MEDS: LINAGLIPTIN 5 MG TABLET PO (09:39)
[2017-11-25] MEDS: ASPIRIN 81 MG TAB PO (09:40)
[2017-11-25] MEDS: METOCLOPRAMIDE 10 MG INJ IV ×2 (09:40→20:51)
[2017-11-25] MEDS: SERTRALINE 50 MG TAB PO (09:40)
[2017-11-25] MEDS: SEVELAMER CARBONATE 0.8 GM PKT PO ×2 (09:40→18:28)
[2017-11-25] MEDS: ACYCLOVIR 400 MG TAB PO ×2 (09:40→20:51)
[2017-11-25] MEDS: HEPARIN 5,000 UNIT/0.5 ML VIAL SC ×2 (09:45→21:04)
[2017-11-25] MEDS: GENTAMICIN 80 MG/NS (PMX) 50 ML IVPB (15:05)
[2017-11-25] MEDS: VANCOMYCIN 1.25 GM in SOD CHLORIDE 0.9% 250 ML IVPB (15:05)
[2017-11-25] MEDS: LORAZEPAM 1 MG TAB PO (20:50)
[2017-11-26] MEDS: PANTOPRAZOLE (EC) 40 MG TAB PO (06:24)
[2017-11-26] MEDS: METOCLOPRAMIDE 10 MG INJ IV ×2 (08:38→21:38)
[2017-11-26] MEDS: ACYCLOVIR 400 MG TAB PO ×2 (08:38→21:37)
[2017-11-26] MEDS: ASPIRIN 81 MG TAB PO (08:38)
[2017-11-26] MEDS: LINAGLIPTIN 5 MG TABLET PO (08:38)
[2017-11-26] MEDS: SEVELAMER CARBONATE 0.8 GM PKT PO ×2 (08:39→18:07)
[2017-11-26] MEDS: LISINOPRIL 5 MG TAB PO (08:39)
[2017-11-26] MEDS: HYDROCORTISONE 5 MG TAB PO ×3 (08:39→21:38)
[2017-11-26] MEDS: METOPROLOL (XL) 50 MG TAB PO (08:40)
[2017-11-26] MEDS: AMIODARONE 200 MG TAB PO (08:40)
[2017-11-26] MEDS: SERTRALINE 50 MG TAB PO (08:40)
[2017-11-26] MEDS: HEPARIN 5,000 UNIT/0.5 ML VIAL SC ×2 (08:52→21:43)
[2017-11-26] MEDS: ARFORMOTEROL TARTRATE 15MCG/2 ML AMP INH ×2 (09:32→19:36)
[2017-11-26] MEDS: BUDESONIDE (NEB) 0.5MG/2ML AMP INH ×2 (09:33→19:36)
[2017-11-26] MEDS: GUAIFENESIN 20 MG/ML 5ML CUP PO (16:10)
[2017-11-26] MEDS: ALBUTEROL/IPRATROPIUM (NEB) 3 ML AMP HHN (16:23)
[2017-11-26] MEDS: LORAZEPAM 1 MG TAB PO (21:37)
[2017-11-27] MEDS: PANTOPRAZOLE (EC) 40 MG TAB PO (05:47)
[2017-11-27 06:13] LABS: ADD MAN DIFF? NO
[2017-11-27 06:17] LABS: WHITE BLOOD COUNT 10.6 10^3/ul (4.8-10.8)
[2017-11-27 06:17] LABS: BASOPHILS % 0.4 % (0.0-2.0); EOSINOPHILS # 0.2 10^3/ul (0.0-0.5); EOSINOPHILS % 1.9 % (0.0-7.0); HEMATOCRIT 32.3 % (42.0-52.0); HEMOGLOBIN 10.3 g/dl (14.0-18.0); LYMPHOCYTES # 1.4 10^3/ul (0.8-2.9); LYMPHOCYTES % 12.9 % (15.0-51.0); MEAN CORPUSCULAR HEMOGLOBIN 29.9 pg (29.0-33.0); MEAN CORPUSCULAR HGB CONC 31.9 g/dl (32.0-37.0); MEAN CORPUSCULAR VOLUME 93.9 fl (82.0-101.0); MEAN PLATELET VOLUME 9.9 fl (7.4-10.4); MONOCYTE # 0.7 10^3/ul (0.3-0.9); MONOCYTES % 6.3 % (0.0-11.0); NEUTROPHIL # 8.1 10^3/ul (1.6-7.5); NEUTROPHILS % 76.9 % (39.0-77.0); PLATELET COUNT 259 10^3/UL (140-415); RED BLOOD COUNT 3.44 10^6/ul (4.70-6.10); RED CELL DISTRIBUTION WIDTH 13.1 % (11.5-14.5)
[2017-11-27 06:41] LABS: ANION GAP 15 (8-16); BLOOD UREA NITROGEN 65 mg/dl (7-20); CARBON DIOXIDE 25 mmol/L (21-31); CHLORIDE 99 mmol/L (97-110); CREATININE 7.35 mg/dl (0.61-1.24); GLUCOSE 79 mg/dl (70-220); MAGNESIUM 2.2 mg/dl (1.7-2.5); POTASSIUM 4.2 mmol/L (3.5-5.1); SODIUM 135 mmol/L (135-144)
[2017-11-27] MEDS: BUDESONIDE (NEB) 0.5MG/2ML AMP INH (08:08)
[2017-11-27] MEDS: ARFORMOTEROL TARTRATE 15MCG/2 ML AMP INH (08:08)
[2017-11-27] MEDS: AMIODARONE 200 MG TAB PO (08:50)
[2017-11-27] MEDS: LISINOPRIL 10 MG TAB PO (08:50)
[2017-11-27] MEDS: METOPROLOL (XL) 50 MG TAB PO (08:50)
[2017-11-27] MEDS: HYDROCORTISONE 5 MG TAB PO ×2 (09:00→17:00)
[2017-11-27] MEDS: SEVELAMER CARBONATE 0.8 GM PKT PO ×2 (09:05→17:00)
[2017-11-27] MEDS: LINAGLIPTIN 5 MG TABLET PO (09:05)
[2017-11-27] MEDS: METOCLOPRAMIDE 10 MG INJ IV (09:05)
[2017-11-27] MEDS: ASPIRIN 81 MG TAB PO (09:06)
[2017-11-27] MEDS: ACYCLOVIR 400 MG TAB PO (09:06)
[2017-11-27] MEDS: SERTRALINE 50 MG TAB PO (09:06)
[2017-11-27] MEDS: HEPARIN 5,000 UNIT/0.5 ML VIAL SC (09:13)
[2017-11-27] MEDS: ALBUTEROL/IPRATROPIUM (NEB) 3 ML AMP HHN (12:37)
[2017-11-27] MEDS: GENTAMICIN 80 MG/NS (PMX) 50 ML IVPB (19:06)
== END 2017-11-27 21:00 | disposition home health service (06) | DRG 871 ==
LOC: ICU 11-20 00:20 → TEL 11-21 21:51 → E/R 20:47
PROC: 5A1D70Z Performance of Urinary Filtration, Intermittent, Less than 6 Hours Per Day (ICD-10-PCS; principal; 2017-11-20)
DX: A41.9 Sepsis, unspecified organism (principal); J18.9 Pneumonia, unspecified organism; J96.01 Acute respiratory failure with hypoxia; N18.6 End stage renal disease; I50.43 Acute on chronic combined systolic (congestive) and diastolic (congestive) heart failure; I13.2 Hypertensive heart and chronic kidney disease with heart failure and with stage 5 chronic kidney disease, or end stage renal disease; E87.1 Hypo-osmolality and hyponatremia; E89.6 Postprocedural adrenocortical (-medullary) hypofunction; I42.9 Cardiomyopathy, unspecified; N39.0 Urinary tract infection, site not specified; R65.20 Severe sepsis without septic shock; D63.1 Anemia in chronic kidney disease; E11.22 Type 2 diabetes mellitus with diabetic chronic kidney disease; E87.5 Hyperkalemia; I35.0 Nonrheumatic aortic (valve) stenosis; I25.10 Atherosclerotic heart disease of native coronary artery without angina pectoris; J43.9 Emphysema, unspecified; J20.9 Acute bronchitis, unspecified; B00.1 Herpesviral vesicular dermatitis; Z99.2 Dependence on renal dialysis; Z90.79 Acquired absence of other genital organ(s); Z85.46 Personal history of malignant neoplasm of prostate; Z86.19 Personal history of other infectious and parasitic diseases; Z79.52 Long term (current) use of systemic steroids; Z79.84 Long term (current) use of oral hypoglycemic drugs
CPT/HCPCS: 36415; 36600; 71045; 71250; 80048; 80053; 80202; 82803; 82962; 83036; 83735; 84100; 84145; 84484; 85025; 87040; 87081; 87086; 90935; 93005; 94640; 94644; 94664; 96374; 97116; 97161; 97530; 99285-25